=== PATIENT | female | born 1960 | race Caucasian/White ===

== ENCOUNTER 2018-09-08 06:13 | Day surgery (SDC) | payer OTHER ==
[2018-09-08] MEDS ORDERED: LACTATED RINGERS 1,000 ML IV ONE (06:37)
[2018-09-08] MEDS ORDERED: fentaNYL 250 MCG/5 ML VIAL IVP ONE (07:26)
[2018-09-08] MEDS ORDERED: MIDAZOLAM 2 MG/2 ML VIAL IVP ONE (07:26)
[2018-09-08 08:44] VITALS: BP 125/76
== END 2018-09-08 06:14 | disposition home or self-care (01) ==
LOC: SDS 06:13
PROVIDERS: ATTEND Internal Medicine Gastroenterology
PROC: 0DBL8ZZ Excision of Transverse Colon, Via Natural or Artificial Opening Endoscopic (ICD-10-PCS; principal; 2018-09-08 07:30)
DX: R19.5 Other fecal abnormalities (principal); D12.3 Benign neoplasm of transverse colon; K60.2 Anal fissure, unspecified; Z80.0 Family history of malignant neoplasm of digestive organs; G47.30 Sleep apnea, unspecified; E11.42 Type 2 diabetes mellitus with diabetic polyneuropathy; I49.9 Cardiac arrhythmia, unspecified; Z79.4 Long term (current) use of insulin; Z79.899 Other long term (current) drug therapy
CPT/HCPCS: 45380; J3010; J7120; V2632

== ENCOUNTER 2018-11-22 09:28 | Outpatient (CLI) | payer OTHER | END 2018-11-22 09:29 | disposition home or self-care (01) | LOC: SC 09:28 | PROVIDERS: ATTEND Internal Medicine Pulmonary Disease | DX: G47.33 Obstructive sleep apnea (adult) (pediatric) (principal) | CPT/HCPCS: 99203; 99212 ==

== ENCOUNTER 2019-01-24 15:52 | Outpatient (CLI) | payer OTHER ==
--- NOTE | 2019-01-24 16:35 | SLEEP CARE CONSULTATION ---
Information from patient questionnaire entered by Sophie Self. I have reviewed and concur with the information entered by Sophie Self. This document represents the service I personally performed and the decisions made by me, Ina Aviles MD, [facility] [place]. History of Present Illness Previous diagnosis: Severe, Obstructive Sleep Apnea-Hypopnea Syndrome AHI: 47.8 Reason for CPAP/BiPAP follow up: first compliance Equipment type: CPAP Equipment obtained from: webme Prior sleep studies: Yes Year and Where: 2007 [facility] HPI additional information: HPI: Ms. Jacobs returned today for follow up of nasal CPAP therapy. She was diagnosed to have severe obstructive sleep apnea-hypopnea syndrome (AHI was 47.8). The patient wears with a ResMed N30i mask. She reports using the device nightly and all through the night, averaging 7.6 hours a night. The > 4 hour compliance rate for the past 30 days is 93.3%. She complained of no particular problem with the device such as soreness on the face, dry nose, epistaxis, nasal congestion or headache. She thinks that the pressure is comfortable. On the CPAP therapy she notices improvement in her sleep quality, and that she wakes up feeling fresher in the morning and more awake/alert during the day. The [place] Sleepiness Scale score 1. Her notices no snore at all. The average residual AHI is 2.0; and average time in large leak per day is 3 minutes. The 90th percentile pressure is 9.8 cmH2O. CPAP Compliance Data - Data Reviewed with Patient Average duration of nightly device use: 7H 40M Compliance rate %: 93.3 Current pressure setting (cmH2O): 6-16 Humidity settin Heated hose settin Subjective Patient concerns: reports: nasal congestion (allergies) Initial [place] Sleepiness Scale score: 2 Current [place] Sleepiness Scale score: 1 Allergies and Home Medications Home medication list reviewed: Yes Review of Systems Review of systems same as previous: Yes Impression and Plan IMPRESSION: 1. Obstructive Sleep Apnea-Hypopnea Syndrome, severe, with the patient doing well on nasal CPAP therapy. She has excellent compliance and significant clinical improvement. The current pressure appears effective and comfortable. Overall, she is very satisfied with treatment and plans to continue with it long-term. No adjustment is necessary today. PLAN: 1. Continue with autoCPAP set between 6 and 16 cmH2O. 2. Return in one year for follow up or earlier if there is any problem with the treatment. I spent 100% of this 15[30] minute visit face to face with the patient with greater than 50% of this was spent time counseling the patient and coordination of care.
== END 2019-01-24 15:53 | disposition home or self-care (01) ==
LOC: SC 15:52
PROVIDERS: ATTEND Internal Medicine Pulmonary Disease
DX: G47.33 Obstructive sleep apnea (adult) (pediatric) (principal)
CPT/HCPCS: 99212; 99213

== ENCOUNTER 2023-11-19 07:29 | Outpatient (CLI) | payer BC, OTHER ==
--- NOTE | 2023-11-19 10:56 | Mammography Report ---
UNILATERAL LEFT DIGITAL DIAGNOSTIC MAMMOGRAM 3D/2D: 11/19/2023 CLINICAL: Patient returns today to evaluate an asymmetry in the left breast. Comparison is made to exams dated: 08/27/2023 mammogram and 02/07/2015 mammogram - [facility]. There are scattered areas of fibroglandular density in the left breast (category b / 25%-50% glandula r tissue). There is an asymmetry in the left breast posterior depth lateral region seen on the craniocaudal view only. This is not seen in additional views, represent superimposition artifact. No other significant masses or calcifications are seen in the breast. IMPRESSION: NEGATIVE There is no mammographic evidence of malignancy. Return to annual mammogram screening schedule is rec ommended. Based on the Tyrer Cuzick model (a risk assessment model) the patient's lifetime risk is 6.8% and her 10 year risk is 3.1%. According to the ACR, ACS, and NCCN guidelines, an annual breast MRI exam brenda g with mammogram is recommended if the patient's lifetime risk is 20% or greater. This exam was interpreted at Station ID: [id number]. NOTE: For mammograms, a report in lay terms will be sent to the patient. Approximately 15% of breast malignancies will not be visualized mammographically. In the management of a palpable breast mass, a negative mammogram must not discourage biopsy of a clinically suspicious lesion. Electronically Signed By: Bhaskar Souza M.D. lc/:11/19/2023 08:18:10 letter sent: No_Letter ACR BI-RADS Category 1: Negative 3341F PARENCHYMAL PATTERN: (A) - The breast(s) demonstrate(s) scattered fibroglandular densities. BI-RADS CATEGORY: (1) - 1 RECOMMENDATION: (ANNUAL) - Recommend routine annual screening mammography. [id number] return to screening LATERALITY: (B)
== END 2023-11-19 07:30 | disposition home or self-care (01) ==
LOC: DI 07:29
PROVIDERS: ATTEND Nurse Practitioner Family
DX: R92.8 Other abnormal and inconclusive findings on diagnostic imaging of breast (principal); R92.322 Mammographic fibroglandular density, left breast